=== PATIENT | male | born 1985 | race Caucasian/White ===

== ENCOUNTER 2019-11-22 18:48 | Emergency (ER) | payer SELFPAY ==
[~2019-11-22] VITALS: Ht 188 cm; Wt 88.6 kg
[2019-11-22 18:52] VITALS: Ht 188 cm; Wt 88.6 kg
[2019-11-22] MEDS ORDERED: ZANAFLEX4 MG PO (21:25)
[2019-11-22] MEDS ORDERED: VOLTAREN75 MG PO (21:25)
[2019-11-22 21:38] VITALS: BP 118/75
== END 2019-11-22 21:39 | disposition home or self-care (01) ==
LOC: D.ER 18:48
DX: M51.37 Other intervertebral disc degeneration, lumbosacral region (principal); M62.830 Muscle spasm of back; W11.XXXA Fall on and from ladder, initial encounter; Y93.9 Activity, unspecified; Y92.9 Unspecified place or not applicable; M54.5 Low back pain